=== PATIENT | female | born 1970 | race Caucasian/White ===

== ENCOUNTER 2018-04-26 18:21 | Emergency (ER) | payer OTHER ==
[~2018-04-26] VITALS: Ht 154.9 cm; Wt 54.4 kg
[~2018-04-26 18:21] MED LIST: LEVOTHROID75 MCG PO; MECLIZINE HCL25 M1 PO; MULTIVITAMINS
[2018-04-26] MEDS ORDERED: VITAMIN D1000 UNI1 PO (18:33)
[2018-04-26] MEDS ORDERED: LISINOPRIL2.5 MG PO (18:33)
[2018-04-26] MEDS ORDERED: MAGNESIUM PO (18:34)
[2018-04-26 19:14] LABS: ABSOLUTE EOSINOPHILS 0.1 thou/uL (0.0-0.7); ABSOLUTE LYMPHOCYTES 1.8 thou/uL (0.8-5.3); ABSOLUTE MONOCYTES 0.6 thou/uL (0.0-1.2); BASOPHILS 0.5 %; EOSINOPHILS 1.1 %; HEMATOCRIT 35.6 % (37.0-47.0); HEMOGLOBIN 11.8 gm/dL (12.0-15.0); MCH 28.2 pg (26.0-34.0); MCHC 33.2 g/dL (28.0-37.0); MONOCYTES 7.6 %; MPV 7.6 fl. (7.2-11.1); NUCLEATED RBCS 0 /100WBC; PLATELET COUNT* 313 thou/uL (150-400); POLYS 66.8 %; RBC 4.18 mil/uL (4.20-5.00); WBC 7.4 thou/uL (4.0-11.0)
[2018-04-26 19:32] LABS: ANION GAP 9 mmol/L (7-16); BUN 16 mg/dL (7-18); CALCIUM 9.2 mg/dL (8.5-10.1); CHLORIDE 104 mmol/L (98-107); CO2 26 mmol/L (21-32); CREATININE 0.9 mg/dL (0.6-1.3); GLUCOSE 102 mg/dL (70-99); POTASSIUM 3.3 mmol/L (3.5-5.1); SODIUM 139 mmol/L (136-145); TROPONIN-I LEVEL <0.06 ng/mL (<0.06)
[2018-04-26 19:33] LABS: ALBUMIN 3.9 g/dL (3.4-5.0); ALKALINE PHOSPHATASE 78 U/L (46-116); NT-PRO BRAIN NAT PEPTIDE 50 pg/mL (<300); SGOT 18 U/L (15-37); SGPT 18 U/L (30-65); TOTAL BILIRUBIN 0.3 mg/dL (<0.1-1.0); TOTAL PROTEIN 7.7 g/dL (6.4-8.2)
[2018-04-26 19:39] LABS: URINE BILIRUBIN NEGATIVE (Negative); URINE BLOOD NEGATIVE (Negative); URINE CLARITY CLEAR; URINE COLOR YELLOW; URINE GLUCOSE-RANDOM NEGATIVE (Negative); URINE KETONES TRACE (Negative); URINE LEUKOCYTES-REFLEX TRACE (Negative); URINE NITRITE-REFLEX NEGATIVE (Negative); URINE PROTEIN NEGATIVE (Negative); URINE SPECIFIC GRAVITY 1.015 (1.005-1.030); URINE UROBILINOGEN 0.2 E.U./dl (0.2-1.0)
[2018-04-26 19:46] LABS: AMORPHOUS URATES Few /LPF (None Seen); CASTS None Seen /LPF (None Seen); CRYSTALS None Seen /LPF (None Seen); SQUAMOUS 0-3 Few /LPF (0-3); URINE RBC 0-2 Rare /HPF (0-2); URINE WBC-REFLEX 0-5 Rare /HPF (0-5)
[2018-04-26 20:37] VITALS: BP 126/72
--- NOTE | 2018-04-27 14:10 | EKG ---
[place] [address] ELECTROCARDIOGRAM REPORT Name: CANDI CHOWI ANTONI Room: [facility]#: [id number] Admission: 04/26/18 Attend Phys: Discharge: 04/26/18 Date of : 68 Report #: [id number] THIS REPORT FOR: //name// [facility] ED Test Date: 2018-04-26 Test Time: 18:59:49 Pat Name: LUDWIN CHOW Department: Room: Gender: F Cleaning Professional: : [id number] Requested By: Caleb Marrufo Order Number: [id number] MD: Rickey Solo Measurements Intervals [place] Rate: 78 P: 71 [place]: 176 QRS: 4 QRSD: 88 T: 41 QT: 371 QTc: 423 Interpretive Statements Sinus rhythm Low voltage, precordial leads Borderline T abnormalities, anterior leads Compared to ECG 10/11/2009 12:12:36 T-wave abnormality now present Sinus arrhythmia no longer present Electronically Signed On 04-27-2018 14:09:46 EQUITY ANALYST by Rickey Solo [email or web address] <ELECTRONICALLY SIGNED> By: Rickey Solo MD, FACC 04/27/18 [id number] 58 Rickey Solo MD, [facility] /EPI
== END 2018-04-26 20:47 | disposition home or self-care (01) ==
LOC: M.ERS 18:21
PROVIDERS: Nurse Practitioner Family
DX: R94.6 Abnormal results of thyroid function studies (principal); I10 Essential (primary) hypertension; E07.9 Disorder of thyroid, unspecified; Z88.1 Allergy status to other antibiotic agents; Z88.5 Allergy status to narcotic agent; Z88.8 Allergy status to other drugs, medicaments and biological substances; Z79.899 Other long term (current) drug therapy